=== PATIENT | female | born 1985 | race African-American/Black ===

== ENCOUNTER 2018-08-12 19:58 | Emergency (ER) | payer BC ==
[~2018-08-12] VITALS: Ht 157.5 cm; Wt 52.2 kg
[~2018-08-12 19:58] MED LIST: AMOXICILLIN 50500 M1 PO; BACTRIM 400-801 EACH PO; BACTRIM DS TAB1 EACH PO; CIPROFLOXACIN500 M1 PO; CYCLOBENZAPRINE5 MG PO; DARVOCET-N 1001 EACH PO; IBUPROFEN 600600 M1 PO; MACROBID 100 M100 M1 PO; NAPROSYN500 MG PO; NOHOMEMEDICATIONS; NORCO 5-325 TA1 EACH PO; PEPCID40 MG PO; PERMETHRIN60 GM TOP; TUSSIONEX PENN473 ML PO; ULTRAM 50MG TAB50 MG PO
[2018-08-12] MEDS ORDERED: MULTIVITAMINS1 EAC7 PO (20:04)
[2018-08-12 20:28] LABS: HEMATOCRIT 42.2 % (37.0-47.0); HEMOGLOBIN 14.5 gm/dL (12.0-15.0); MCH 29.8 pg (26.0-34.0); MCHC 34.4 g/dL (28.0-37.0); MCV 86.7 fL (80.0-100.0); RBC 4.87 mil/uL (4.20-5.00); RDW 13.2 % (10.5-14.5)
[2018-08-12 20:36] LABS: CALCIUM 10.1 mg/dL (8.5-10.1); CREATININE 0.9 mg/dL (0.6-1.0); POTASSIUM 3.6 mmol/L (3.5-5.1)
[2018-08-12 20:42] LABS: ALBUMIN 3.9 g/dL (3.4-5.0); TOTAL BILIRUBIN 0.3 mg/dL (<0.1-1.0); TOTAL PROTEIN 8.1 g/dL (6.4-8.2)
[2018-08-12 20:46] LABS: URINE BILIRUBIN NEGATIVE (Negative); URINE BLOOD NEGATIVE (Negative); URINE CLARITY CLEAR; URINE COLOR YELLOW; URINE GLUCOSE-RANDOM* NEGATIVE (Negative); URINE KETONES NEGATIVE (Negative); URINE LEUKOCYTES-REFLEX NEGATIVE (Negative); URINE NITRITE-REFLEX NEGATIVE (Negative); URINE PROTEIN (DIPSTICK) NEGATIVE (Negative); URINE SPECIFIC GRAVITY >= 1.030 (1.005-1.035); URINE UROBILINOGEN 0.2 E.U./dl (0.2-1.0)
[2018-08-12 21:20] VITALS: BP 113/73
== END 2018-08-12 21:22 | disposition home or self-care (01) ==
LOC: ER 19:58
PROVIDERS: Emergency Medicine
DX: R51 Headache (principal); F17.210 Nicotine dependence, cigarettes, uncomplicated; I10 Essential (primary) hypertension

== ENCOUNTER 2018-08-20 22:52 | Emergency (ER) | payer BC ==
[~2018-08-20] VITALS: Ht 157.5 cm; Wt 60.3 kg
[~2018-08-20 22:52] MED LIST changes: +MULTIVITAMINS1 EAC7 PO
[2018-08-20] MEDS ORDERED: PAIN RELIEVER325 MG PO (23:06)
[2018-08-21] MEDS ORDERED: NORCO 5-325 TA1 EACH PO (01:19)
[2018-08-21] MEDS ORDERED: NORFLEX100 MG PO (01:19)
[2018-08-21] MEDS ORDERED: SENNA-DOCUSATE1 EACH PO (01:19)
[2018-08-21] MEDS ORDERED: NAPROSYN500 MG PO (01:19)
[2018-08-21 01:38] VITALS: BP 128/76
== END 2018-08-21 01:54 | disposition home or self-care (01) ==
LOC: ER 22:52
DX: S16.1XXA Strain of muscle, fascia and tendon at neck level, initial encounter (principal); S39.012A Strain of muscle, fascia and tendon of lower back, initial encounter; F17.210 Nicotine dependence, cigarettes, uncomplicated; V89.0XXA Person injured in unspecified motor-vehicle accident, nontraffic, initial encounter; Y93.89 Activity, other specified; Y92.89 Other specified places as the place of occurrence of the external cause; Y99.8 Other external cause status

== ENCOUNTER 2018-09-12 18:41 | Emergency (ER) | payer BC ==
[~2018-09-12] VITALS: Ht 160 cm; Wt 53.1 kg
[~2018-09-12 18:41] MED LIST changes: +NORFLEX100 MG PO; +PAIN RELIEVER325 MG PO; +SENNA-DOCUSATE1 EACH PO
[2018-09-12 18:49] VITALS: BP 109/65
[2018-09-12 19:29] LABS: URINE BILIRUBIN NEGATIVE (Negative); URINE BLOOD 1+ (Negative); URINE COLOR YELLOW; URINE GLUCOSE-RANDOM* NEGATIVE (Negative); URINE KETONES NEGATIVE (Negative); URINE PROTEIN (DIPSTICK) 1+ (Negative); URINE SPECIFIC GRAVITY 1.025 (1.005-1.035); URINE UROBILINOGEN 0.2 E.U./dl (0.2-1.0)
[2018-09-12 19:30] LABS: URINE CLARITY CLOUDY; URINE LEUKOCYTES-REFLEX 1+ (Negative); URINE NITRITE-REFLEX POSITIVE (Negative)
[2018-09-12 19:40] LABS: BACTERIA-REFLEX >30 Many /HPF (None Seen); CASTS None Seen /LPF (None Seen); CRYSTALS None Seen /LPF (None Seen); SQUAMOUS >10 Many /LPF (0-3); URINE RBC 3-10 Few /HPF (0-2); URINE WBC-REFLEX >25 Many /HPF (0-5)
[2018-09-12] MEDS ORDERED: KEFLEX500 M1 PO (19:42)
== END 2018-09-12 19:59 | disposition home or self-care (01) ==
LOC: ER 18:41
PROVIDERS: Physician Assistant
DX: R30.0 Dysuria (principal); F17.210 Nicotine dependence, cigarettes, uncomplicated

== ENCOUNTER 2021-05-21 15:26 | Emergency (ER) | payer BC ==
[~2021-05-21] VITALS: Ht 160 cm; Wt 58.5 kg
[~2021-05-21 15:26] MED LIST changes: +KEFLEX500 M1 PO
[2021-05-21] MEDS ORDERED: NORCO5 PO (17:33)
[2021-05-21 17:58] VITALS: BP 105/68
== END 2021-05-21 17:57 | disposition home or self-care (01) ==
LOC: ER 15:26
DX: S92.352A Displaced fracture of fifth metatarsal bone, left foot, initial encounter for closed fracture (principal); F17.210 Nicotine dependence, cigarettes, uncomplicated; X50.1XXA Overexertion from prolonged static or awkward postures, initial encounter; Y93.89 Activity, other specified; Y92.89 Other specified places as the place of occurrence of the external cause; Y99.8 Other external cause status